=== PATIENT | male | born 1970 | race African-American/Black ===

== ENCOUNTER 2017-09-13 14:54 | Emergency (ER) | payer SELFPAY ==
[~2017-09-13] VITALS: Ht 182.9 cm; Wt 112.0 kg
[~2017-09-13 14:54] MED LIST: TRAM50 PO; Z.0.NO CURRENT MEDS
[2017-09-13 14:58] VITALS: BP 114/65; PULSE 95; RESP 16; TEMP 100; O2SAT 95
--- NOTE | 2017-09-13 15:44 | PD ---
HPI Chief Complaint: Cold / Flu Symptoms Time Seen by Provider: 15:10 Travel History International Travel<30 days: No Contact w/Intl Traveler<30days: No Traveled to known affect area: No History of Present Illness HPI This is a 47-year-old male presents to the ER complaining of difficulty swallowing and spitting for the last 3 days. Patient had multiple episodes of fever at home, nausea and vomiting for the last 3 days as well. He states he started having left-sided neck pain and since then has been unable to swallow solids. Patient also has been spitting for last 3 days, he reports diarrhea nonbloody [id number]. He denies any abdominal pain or chest pain or shortness of breath. Denies any tooth pain but states that he had the dental procedure 2 years ago. He has been feeling warm at home and had a temperature of 102 here in the ER. PFSH Past Medical History Hx Anticoagulant Therapy: No Cardiovascular Problems: Yes Diabetes: No Diminished Hearing: No Past Surgical History Cardiac Surgery: Yes ("HEART VALVE REPAIR" IN [facility]) Social History Alcohol Use: Yes (SOCIALLY) Tobacco Use: Yes (1 PPD) Substance Use: No Allergies-Medications (Allergen,Severity, Reaction): Coded Allergies: No Known Allergies (Verified Adverse Reaction, Unknown, 09/13/17) Reported Meds & Prescriptions Reported Meds & Active Scripts Active No Active Prescriptions or Reported Medications Review of Systems Except as stated in HPI: all other systems reviewed are Neg Physical Exam Narrative GENERAL: Alert oriented 3 no acute distress SKIN: Focused skin assessment warm/dry. HEAD: Atraumatic. Normocephalic. EYES: Pupils equal and round. No scleral icterus. No injection or drainage. ENT: Unable to open his mouth because of pain, examination of the tonsils seem enlarged but unable to fully visualize the tonsils due to patient inability to open his mouth. Enlarged submandibular lymph nodes on the left more than right. No nasal bleeding or discharge. Mucous membranes pink and moist. NECK: Trachea midline. No JVD. CARDIOVASCULAR: Regular rate and rhythm. No murmur appreciated. RESPIRATORY: No accessory muscle use. Clear to auscultation. Breath sounds equal bilaterally. GASTROINTESTINAL: Abdomen soft, non-tender, nondistended. Hepatic and splenic margins not palpable. MUSCULOSKELETAL: No obvious deformities. No clubbing. No cyanosis. No edema. NEUROLOGICAL: Awake and alert. No obvious cranial nerve deficits. Motor grossly within normal limits. Normal speech. PSYCHIATRIC: Appropriate mood and affect; insight and judgment normal. Data Data Last Documented VS Vital Signs Date Time Temp Pulse Resp B/P (MAP) Pulse Ox O2 Delivery O2 Flow Rate FiO2 09/13/17 14:58 100.0 95 16 114/65 (81) 95 Orders Orders Complete Blood Count With Diff (09/13/17 15:18) Comprehensive Metabolic Panel (09/13/17 15:18) Ketorolac Inj (Toradol Inj) (09/13/17 16:00) Ceftriaxone Inj (Rocephin Inj) (09/13/17 16:00) Sodium Chlor 0.9% 1000 Ml Inj (Ns 1000 M (09/13/17 16:00) Blood Culture (09/13/17 15:49) Ct Soft Tiss Neck W Iv Cont (09/13/17 ) Iohexol 350 Inj (Omnipaque 350 Inj) (09/13/17 16:34) Labs Laboratory Tests Test 09/13/17 15:46 White Blood Count 12.4 TH/MM3 Red Blood Count 4.56 MIL/MM3 Hemoglobin 14.4 GM/DL Hematocrit 42.4 % Mean Corpuscular Volume 92.9 FL Mean Corpuscular Hemoglobin 31.5 PG Mean Corpuscular Hemoglobin Concent 33.9 % Red Cell Distribution Width 13.1 % Platelet Count 361 TH/MM3 Mean Platelet Volume 7.5 FL Neutrophils (%) (Auto) 77.6 % Lymphocytes (%) (Auto) 16.3 % Monocytes (%) (Auto) 4.7 % Eosinophils (%) (Auto) 0.4 % Basophils (%) (Auto) 1.0 % Neutrophils # (Auto) 9.7 TH/MM3 Lymphocytes # (Auto) 2.0 TH/MM3 Monocytes # (Auto) 0.6 TH/MM3 Eosinophils # (Auto) 0.0 TH/MM3 Basophils # (Auto) 0.1 TH/MM3 CBC Comment DIFF FINAL Differential Comment Blood Urea Nitrogen 10 MG/DL Creatinine 0.95 MG/DL Random Glucose 110 MG/DL Total Protein 8.7 GM/DL Albumin 3.8 GM/DL Calcium Level 8.8 MG/DL Alkaline Phosphatase 71 U/L Aspartate Amino Transf (AST/SGOT) 17 U/L Alanine Aminotransferase (ALT/SGPT) 28 U/L Total Bilirubin 0.1 MG/DL Sodium Level 135 MEQ/L Potassium Level 3.9 MEQ/L Chloride Level 101 MEQ/L Carbon Dioxide Level 25.9 MEQ/L Anion Gap 8 MEQ/L Estimat Glomerular Filtration Rate 103 ML/MIN MDM Medical Decision Making Medical Screen Exam Complete: Yes Emergency Medical Condition: Yes Differential Diagnosis Retroperitoneal abscess, dental abscess, malignancy. Narrative Course This is a 47-year-old male presents ER complaining of neck pain and spitting. A CAT scan shows soft tissue swelling from the oropharynx to the hypopharynx without an abscess. Labs show elevated white blood count with left shift. I spoke with Dr. Kesha Clark ENT peritoneal dialysis registered nurse and he recommends outpatient antibiotics and steroids and he will follow-up with the patient in the clinic in 1-2 days. The patient is saturating 100% on room air, there is no airway compromise, breathing comfortably and there is no concern for respiratory distress. Explained to the patient that I would rather have him stay in the hospital for 1 day to make sure that swelling is going down and it is not compromising his airway but patient prefers outpatient management so I discussed with the patient that if symptoms change or do not improve that he comes to the ER right away or if the swelling getting worse or any difficulty breathing to return to ER immediately. Patient understands and agrees to the plan of care. Last [address] 09/13/17 0000 Signed Impressions: Service Date/Time: Wednesday, September 13, 2017 16:21 - CONCLUSION: 1. Prominent lymphoid tissue in Waldeyer's ring, especially on the left side with soft tissue swelling extending from the oropharynx into the left hypopharynx without discrete or drainable abscess. There is partial effacement of the upper left airway. Mildly enlarged retromandibular lymph nodes present measuring up to about 1.6 cm in diameter bilaterally. Josh Benitez MD Diagnosis Primary Impression: Oropharyngeal lesion Additional Instructions: Return to your any difficulty breathing or difficulty swallowing or if symptoms change or do not improve follow-up with ENT in 1-2 days. Scripts Prednisone (Prednisone) 20 Mg Tab 40 MG PO DAILY, #7 TAB 0 Refills Take 40 mg (2 tablets) daily for 5 days Prov: Castro Cotto MD 09/13/17 Cephalexin (Keflex) 500 Mg Cap 500 MG PO Q12H for Infection for 10 Days, #20 CAP 0 Refills Prov: Castro Cotto MD 09/13/17 Disposition: 01 DISCHARGE HOME Condition: Stable Castro Cotto MD Sep 13, 2017 15:44
[2017-09-13 15:58] LABS: CHLORIDE 101 MEQ/L (98-107); SODIUM (NA) 135 MEQ/L (136-145)
[2017-09-13] MEDS ORDERED: SODIUM CHLOR 0.9% 1000 ML INJ 1,000 ML IV ONE (16:00)
[2017-09-13] MEDS ORDERED: cefTRIAXone INJ 2,000 MG in SODIUM CHLORIDE 0.9% INJ 100 ML IV ONE (16:00)
[2017-09-13] MEDS ORDERED: KETOROLAC TROMETHAMINE 30 MG/ML (IVP) VIAL IV PUSH ONE (16:00)
[2017-09-13 16:01] LABS: ALBUMIN 3.8 GM/DL (3.4-5.0); AUTOMATED NEUTROPHIL # 9.7 TH/MM3 (1.8-7.7); BASOPHIL # 0.1 TH/MM3 (0-0.2); CALCIUM 8.8 MG/DL (8.5-10.1); EOSINOPHIL % 0.4 % (0.0-4.0); HEMATOCRIT 42.4 % (39.0-51.0); HEMOGLOBIN 14.4 GM/DL (13.0-17.0); LYMPH % 16.3 % (9.0-44.0); MEAN CELL VOLUME 92.9 FL (80.0-100.0); MEAN CORPUSCULAR HEMOGLOBIN 31.5 PG (27.0-34.0); MEAN CORPUSCULAR HGB CONC 33.9 % (32.0-36.0); MEAN PLATELET VOLUME 7.5 FL (7.0-11.0); MONO % 4.7 % (0.0-8.0); MONOCYTE # 0.6 TH/MM3 (0-0.9); NEUT % 77.6 % (16.0-70.0); PLATELET COUNT 361 TH/MM3 (150-450); RED BLOOD COUNT 4.56 MIL/MM3 (4.50-5.90); RED CELL DISTRIBUTION WIDTH 13.1 % (11.6-17.2); WHITE BLOOD COUNT 12.4 TH/MM3 (4.0-11.0)
[2017-09-13 16:02] LABS: BICARBONATE 25.9 MEQ/L (21.0-32.0); BLOOD UREA NITROGEN 10 MG/DL (7-18); GLUCOSE,RANDOM 110 MG/DL (74-106)
[2017-09-13 16:04] LABS: ALT (GPT) 28 U/L (12-78)
[2017-09-13 16:05] LABS: AST (GOT) 17 U/L (15-37); CREATININE 0.95 MG/DL (0.60-1.30); GLOMERULAR FILTRATION RATE 103 ML/MIN (>89)
[2017-09-13 16:06] LABS: TOTAL BILIRUBIN ADULT 0.1 MG/DL (0.2-1.0); TOTAL PROTEIN 8.7 GM/DL (6.4-8.2)
[2017-09-13 16:07] LABS: ALKALINE PHOSPHATASE 71 U/L (45-117)
[2017-09-13] MEDS ORDERED: IOHEXOL 350 MG/ML 10 ML VIAL (for RAD DIAG) IVCONTRAST ONE (16:34)
--- NOTE | 2017-09-13 16:46 | RADRPT ---
EXAM DATE/TIME: 09/13/2017 16:21 [facility] COMPARISON: None. INDICATIONS : <<Difficulty swallowing. Evaluate for abscess.>> IV CONTRAST: <<75>> cc Omnipaque 350 (iohexol) IV RADIATION DOSE: <<21.88>> CTDIvol (mGy) MEDICAL HISTORY : Cardiovascular disease. SURGICAL HISTORY : Heart valve repair. ENCOUNTER: Initial ACUITY: 3 days PAIN SCALE: 0/10 LOCATION: neck TECHNIQUE: Volumetric scanning of the neck was performed. Using automated exposure control and adjustment of th e mA and/or kV according to patient size, radiation dose was kept as low as reasonably achievable to obtain optimal diagnostic quality images. DICOM format image data is available electronically for r eview and comparison. FINDINGS: There is prominent lymphoid tissue in Waldeyer's ring. On the left side it is more prominent and ther e is some subtle low attenuation suggesting phlegmonous type mass although noted discrete loculated f luid is seen to suggest abscess. Soft tissue swelling extends into the hypopharynx on the left side w ith partial effacement of the upper left airway. Again note definite abscess. Mildly enlarged lymph n odes in the upper neck predominantly in the retromandibular region measuring up to about 1.6 cm in di ameter. Paranasal sinuses are clear except for retention cyst in the left maxillary sinus. No airway obstructing lesions or foreign bodies. No acute bony abnormalities. CONCLUSION: 1. Prominent lymphoid tissue in Waldeyer's ring, especially on the left side with soft tissue swellin g extending from the oropharynx into the left hypopharynx without discrete or drainable abscess. Ther e is partial effacement of the upper left airway. Mildly enlarged retromandibular lymph nodes present measuring up to about 1.6 cm in diameter bilaterally. Josh Benitez MD on September 13, 2017 at 16:38 Board Certified Radiologist. This report was verified electronically.
[2017-09-13] MEDS ORDERED: PRED20 PO (17:26)
[2017-09-13] MEDS ORDERED: CEPH-460 PO (17:26)
[2017-09-13 17:43] VITALS: BP 129/61; PULSE 74; RESP 18; TEMP 98.3; O2SAT 97
== END 2017-09-13 17:53 | disposition home or self-care (01) ==
LOC: PHED 14:54
DX: J39.2 Other diseases of pharynx (principal); R50.9 Fever, unspecified; R11.2 Nausea with vomiting, unspecified; M54.2 Cervicalgia; R19.7 Diarrhea, unspecified; F17.210 Nicotine dependence, cigarettes, uncomplicated
CPT/HCPCS: 70491; 80053; 85025; 87040; 96365; 96375; 99284; J0696; J1885; J7030; Q9967